=== PATIENT | male | born 1940 | race Caucasian/White ===

== ENCOUNTER 2023-11-10 06:31 | Day surgery (SDC) | payer OTHER, SELFPAY ==
[2023-11-10] VITALS (12 sets, daily range): BP systolic 114–148; BP diastolic 56–81; BMI 25.9
[2023-11-10] MEDS: NORMOSOL-R 1000 IV (09:41)
[2023-11-10] MEDS: TYLENOL 1000 MG PO (09:41)
[2023-11-10 10:44] LABS: Hematocrit 42.6 % (39.0-52.0); Hemoglobin 14.6 g/dL (13.0-18.0); Mean Corp Hgb Conc. 34.3 g/dL (33.0-37.0); Mean Corpuscular Volume 93.4 fL (80.0-94.0); Mean Platelet Volume 9.1 fL (7.4-10.4); Platelet Count 113 10^3/uL (130-400); Red Blood Cell Count 4.56 10^6/uL (4.70-6.10); Red Cell Dist. Width 12.5 % (11.5-14.5); White Blood Cell Count 8.1 10^3/uL (4.8-10.8)
--- NOTE | 2023-11-10 11:00 | W.SUR.PREOP ---
Pre-Operative Surgical Note
-
I have examined this patient prior to the performance of the scheduled procedure.
The patient's condition is unchanged from the time of the current History and
Physical and the patient is able to undergo the scheduled procedure.
[2023-11-10 11:52] LABS: Blood Urea Nitrogen 19 mg/dl (9-20); Calcium 9.2 mg/dl (8.4-10.2); Carbon Dioxide 24 mmol/L (22-30); Chloride 102 mmol/L (98-107); Estimated Creatinine Clearance 57 ml/min; Glucose 100 mg/dl (70-99); Potassium 4.4 mmol/L (3.5-5.1); Sodium 134 mmol/L (135-145); eGFR > 60.00
[2023-11-10] MEDS: MOTRIN 600 MG PO (16:31)
--- NOTE | 2023-11-10 16:47 | W.IMMPOSTOP ---
Surgical Immed Post Op Note
-
Primary Surgeon: VERONICA Holden MD
Assisting Surgeon:
Pre-op Diagnosis: Mohs defect x 3 of right nose, Basal cell carcinoma
Post-op Diagnosis: Same
Procedure Performed: Adjacent tissue transfer, Direct cheek based skin flap to nose, full thickness skin graft, wound bed prep nose
Anesthesia Type: General
Specimen / Cultures: None
Estimated Blood Loss: 10cc
Complications: None
Operative Findings: As expected
--- NOTE | 2023-11-10 16:50 | OR.RPT ---
Operative Report
Operative Report
Date of surgery: 11/10/2023
Surgeon: VERONICA Holden MD
Preoperative diagnosis: Mohs defect of the nose x 3 distinct sites, basal cell carcinoma
Postoperative diagnosis: Same
Procedure:
1. Cheek based direct skin flap for nasal reconstruction
2. Adjacent tissue transfer, face, 5 x 2 cm
3. Full-thickness skin graft 1 x 1 cm, face
4. Wound bed prep, 3 distinct sites, total surface area 3.5 cm
Anesthesia: General
EBL: 10 cc
Complications: None
Indications for procedure: Patient is an 83-year-old male with a prior diagnosis of biopsy-proven basal cell carcinoma of 3 distinct sites of the right nose including the tip, super alar groove, and nasofacial sulcus. He underwent a Mohs procedure
with confirmed clear margins. This left him with 3 distinct defects of the nose. The defect measured 1.5 x 1.5 cm, 1.1 x 1.1 cm, 0.8 x 0.8 cm respectively. Given the multifocal nature of these wounds, a long discussion was had about his options.
We discussed forehead flap freak reconstruction which he was not interested in. This would require turning the 3 wounds into 1 and reconstructing him in total. Alternatives include adjacent tissue transfer and local flap options with or without
full-thickness skin grafting. He was much more amenable to this option as it was done in 1 stage. Alternatives are to allow the wound to granulate however this would be cosmetically unfavorable. Consents were confirmed all questions were
answered. Risk were reviewed including flap failure, graft failure, wound formation, scar, need for repeat procedure. He understood these risk desired to proceed
Procedure in detail: Patient was identified preoperatively and the surgical site was confirmed to be the nose and face. All questions were answered consents were confirmed. Patient is taken back the operating placed supine on table. Anesthesia
was induced and LMA was placed. Patient was then prepped after protecting the eyes with Betadine solution. Timeout for patient safety was performed was confirmed that preoperative antibiotics have been administered and bilateral SCDs were in
place. He was draped in the usual sterile fashion. Procedure began first by measuring wounds with the aforementioned measurements. 1% lidocaine with epinephrine was used for local anesthesia. Wound bed prep was then performed removing prior
eschar, fibrinous debris, necrotic tissue. This was done over an area of 3.5 cm in total, the some of 3 distinct sites. A plan was then made for multiple reconstructive options to fill 3 defects. First medial labial flap from the right cheek with
will be performed as a direct tube for the more proximal defects. As such an incision was planned in the nasolabial fold and was measured to ensure adequate length to fill the defects. This was raised sharply with a 15 blade followed by Bovie
Bovie electrocautery. This was done in the subcutaneous plane. After raising the flap and ensuring adequate vascularity, the flap was debulked to the contour of the proximal defects. An adjacent tissue transfer was then used to also reconstruct
the resultant defect over an area of 5 x 2 cm. This was done by an advancement flap of the cheek as well. The proximal 2 defects were then able to be reconstructed by the medial labial flap and the flap was buried in the intermediate area where
skin was left intact. The skin of the flap was de-epithelialized prior. The third nasal tip defect would be reconstructed with a combination of the subcutaneous tissues from the medial labial flap which was de-epithelialized. A full-thickness
skin graft was then harvested from the right preauricular skin over an area 1 x 1 cm. This left a approximately 3 cm scar which was closed. Full-thickness skin graft was defatted and placed overlying the healthy subcutaneous tissues of the flap
with adequate contour. A bolster was then placed. All suture lines were closed with 5-0 Vicryl in the deep dermis as able, superficial sutures were combination of running and interrupted 5-0 nylon's. At the conclusion of the case the defects were
adequately filled, with good contour, and evidence of good perfusion. A bolster consisting of Xeroform was placed over the full-thickness skin graft and sutured in place as well. All counts were correct at the end the case was performed without
complication. Patient was extubated taken the PACU for further care.
== END 2023-11-10 17:05 | disposition home or self-care (01) ==
LOC: SDS 06:31
PROVIDERS: ATTENDING PHYSICIAN Surgery Plastic and Reconstructive Surgery
DX: C44.311 Basal cell carcinoma of skin of nose (principal)
CPT/HCPCS: 14060; 15260; 14061; 80048; 85027; 93005

== ENCOUNTER 2023-11-18 15:57 | Inpatient (IN) | payer OTHER, SELFPAY ==
[2023-11-18] VITALS (9 sets, daily range): BP systolic 129–162; BP diastolic 64–122; BMI 25.9; BMI 24.8
[2023-11-18 11:55] LABS: % Basophils 0.3 % (0-2); % Immature Granulocytes 0.6 % (0-0.5); % Lymphocytes 3.2 % (20.5-51.1); % Monocytes 4.1 % (1.7-9.3); % Neutrophils 91.8 % (42.2-75.2); Absolute Basophils 0.1 10^3/uL (0-0.2); Absolute Immature Granulocytes 0.1 10^3/uL (0-0.05); Absolute Lymphocytes 0.5 10^3/uL (1.2-3.4); Absolute Monocytes 0.6 10^3/uL (0.1-0.6); Absolute Neutrophils 14.4 10^3/uL (1.4-6.5); Hematocrit 39.8 % (39.0-52.0); Hemoglobin 14.6 g/dL (13.0-18.0); Mean Corp Hgb Conc. 36.7 g/dL (33.0-37.0); Mean Corpuscular Hgb 32.2 pg (27.0-31.0); Mean Corpuscular Volume 87.9 fL (80.0-94.0); Mean Platelet Volume 8.6 fL (7.4-10.4); Nucleated Red Blood Cells % 0 % (-); Platelet Count 123 10^3/uL (130-400); Red Blood Cell Count 4.53 10^6/uL (4.70-6.10); Red Cell Dist. Width 12.2 % (11.5-14.5); White Blood Cell Count 15.7 10^3/uL (4.8-10.8)
[2023-11-18 12:07] LABS: ALT (SGPT) 27 U/L (0-50); AST (SGOT) 32 U/L (17-59); Albumin 4.6 g/dl (3.5-5.0); Alkaline Phosphatase 79 U/L (38-126); Blood Urea Nitrogen 22 mg/dl (9-20); Calcium 9.3 mg/dl (8.4-10.2); Carbon Dioxide 24 mmol/L (22-30); Chloride 100 mmol/L (98-107); Estimated Creatinine Clearance 63 ml/min; Glucose 135 mg/dl (70-99); Lipase 78 U/L (23-300); Potassium 4.4 mmol/L (3.5-5.1); Sodium 133 mmol/L (135-145); Total Bilirubin 1.4 mg/dl (0.2-1.3); Total Protein 7.4 g/dl (6.3-8.2); eGFR > 60.00
[2023-11-18 12:18] LABS: Troponin I < 0.012 ng/ml
--- NOTE | 2023-11-18 12:21 | ED.GENMED ---
History of Present Illness
General
Chief Complaint: Abdominal Pain
Time Seen by Provider: 11/18/23 11:36
History of Present Illness
History of Present Illness:
83-year-old male with history of hypertension, hyperlipidemia, AAA repair presenting to the emergency department for epigastric abdominal pain with radiation to his back. Note symptoms started about 1 AM this morning with nausea. Denies any
vomiting. Reports somewhat similar episode of symptoms in the winter, attributed to GERD. Reports generalized fatigue. Denies difficulty breathing. Denies fever. Denies history of gallbladder issues. Reports AAA repair was from incidental
finding. Notes that follow-ups have been within normal limits. Does report that last evening he had a hot dog and a hamburger. Denies additional acute medical complaints.
Past History
Past History
ED Past Medical History: HTN
Social History
Tobacco: Non-smoker
Alcohol: Occasional
Drug: None
Personal:
Living: with family
Phy Exam
Physical Exam
Physical Exam:
GENERAL: Alert , in no apparent distress
EYE: pupils equal and reactive
NECK: Supple
ENT: o/p clr, mmm.
CARDIAC: Regular rate and rhythm .
LUNGS: Clear breath sounds bilaterally, no acute respiratory distress, no wheezes/rales/rhonchi
ABDOMEN: Soft, focal tenderness to the right upper quadrant without rebound or guarding
NEUROLOGICAL: Alert and oriented, no focal neuro deficits
SKIN: Warm and dry, skin intact.
MUSCULOSKELETAL: No edema, well perfused.
PSYCH: Normal and appropriate interaction.
Course
Orders/Labs/Results
Orders:
Orders
11/18/23 10:45
EKG [Electrocardiogram (*1)] Urgent
Reason for Study: Chest Pain
11/18/23 10:46
EKG- Treatment ONCE
11/18/23 11:47
Complete Blood Count/With Diff Urgent
Comprehensive Metabolic Panel Urgent
Lipase Urgent
Troponin I Urgent
11/18/23 12:15
Famotidine [Pepcid] 20 mg IV NOW STA
Mag Hydrox/Al Hydrox/Simeth [Maalox] 30 ml PO NOW STA
US Abdomen Complete/Upper Urgent
Comment:
Reason For Exam: RUQ pain
11/18/23 13:54
CefTRIAXone [Rocephin] 1,000 mg IV NOW STA
11/18/23 14:17
Sterile Water [Sterile Water For Injection] 10 ml .ROUTE .[facility]
11/18/23 15:32
Admit/Transfer Patient As Directed
Co-Sign Provider:
Level of Care: Inpatient admission
Assign to:: Medical/Surgical
Physician / Group: Kelsey
Diagnosis: Cholecystitis
Reason for Hospitalization: IVFs, IV abx, OR tomorrow
Expected length of stay greater than two midnights?: Yes
ELOS- Estimated Length of Stay in days: 3
I certify the patient meets the requirements for IP care: Yes
11/18/23 15:36
Code Status As Directed
Resuscitation Status: Full Code
Metoprolol Xl [Toprol Xl] 25 mg PO NOW STA
Abnormal Lab Results
11/18/23
11:47
WBC 15.7 H 10^3/uL
(4.8-10.8)
RBC 4.53 L 10^6/uL
(4.70-6.10)
MCH 32.2 H pg
(27.0-31.0)
Plt Count 123 L 10^3/uL
(130-400)
Abs Immat Gran (auto) 0.1 H 10^3/uL
(0-0.05)
Absolute Neuts (auto) 14.4 H 10^3/uL
(1.4-6.5)
Absolute Lymphs (auto) 0.5 L 10^3/uL
(1.2-3.4)
Immature Gran % 0.6 H %
(0-0.5)
Neutrophils % 91.8 H %
(42.2-75.2)
Lymphocytes % 3.2 L %
(20.5-51.1)
Sodium 133 L mmol/L
(135-145)
BUN 22 H mg/dl
(9-20)
Glucose 135 H mg/dl
(70-99)
Total Bilirubin 1.4 H mg/dl
(0.2-1.3)
11/18/23 11:47
11/18/23 11:47
Vital Signs
Initial and Last Documented VS:
Initial Vital Signs
Temp Pulse Resp BP Pulse Ox
98.9 F 93 16 148/112 99
11/18/23 10:46 11/18/23 10:46 11/18/23 10:46 11/18/23 10:46 11/18/23 10:46
Last Documented Vital Signs
Temp Pulse Resp BP Pulse Ox
98.9 F 72 14 140/122 98
11/18/23 10:46 11/18/23 13:30 11/18/23 13:30 11/18/23 13:03 11/18/23 13:30
MDM/Problems Addressed
MDM/Problems Addressed:
83-year-old male with history of hypertension, hyperlipidemia, AAA repair presenting for epigastric abdominal pain with radiation to his back with associated nausea vital signs on arrival significant for mild hypertension.
On exam, patient resting comfortably, no acute distress. Differential considerations include GERD versus gastritis versus cholelithiasis versus cholecystitis. Patient does have focal tenderness to the right upper quadrant and symptoms preceded by
eating a hamburger and hot dog. This reason, suspicious for gallbladder pathology. Will obtain laboratory analysis and right upper quadrant imaging. However, patient with a significant cardiac history including AAA repair. Blood pressure
slightly elevated. Aortic pathology is also consideration. EKG obtained, nonischemic. Nursing protocol placed, troponin undetectable. Will consider CT of the chest if ultrasound unremarkable
14:00 -patient with leukocytosis, and ultrasound imaging consistent with acute cholecystitis, consistent with symptoms. Will consult with surgery. Ceftriaxone ordered. Plan for admission for likely operative management
*Critical Care Note
Total Time (30-74mins, 75-104mins- exclusive of procedures): Not Applicable
ED Attending Note
-
Portions of this chart may have been created with voice recognition software.� Occasional wrong word or��sound alike� substitutions may have occurred due to the inherent limitations of voice recognition software.
Discharge Plan
Departure
Patient Disposition: Admit
Date of Disposition: 11/18/23
Time of Disposition: 14:58
Presentation/result/management discussed w/ accepting MD/DO: Hospitalist
Patient with high blood pressure during this ER visit?: Yes
Condition: Fair
Discharge Problem:
Acute calculous cholecystitis
Interventions
Interventions:
*Risk Screen - Suicide Last Done: 11/18/23 10:46
*Neglect/Abuse Screening Last Done: 11/18/23 10:46
*ED COVID-19 Vaccine History Last Done: 11/18/23 10:46
BK-Rnaycc-Mvjvbbmhvr Assessment Last Done: 11/18/23 12:52
[2023-11-18] MEDS: MAALOX 30 ML PO (12:59)
[2023-11-18] MEDS: PEPCID 20 MG IV (12:59)
[2023-11-18] MEDS: ROCEPHIN 1000 MG IV (14:18)
--- NOTE | 2023-11-18 15:19 | CON.GS ---
Consultation
-
Reason for Consultation: cholecystitis
Medical History
-
Chief Complaint: Epigastric abdominal pain
History of Present Illness:
Patient is an 83-year-old male who presented to the emergency department secondary to the acute onset of abdominal pain waking him from sleep overnight.
Patient states that he has been his usual baseline state of health although he is recently undergone Mohs procedure for resection of 3 separate basal cell carcinomas of the nose and subsequent closure recently with plastic surgery on 11/10/2023.
Patient's also states that he has had some mild lingering fatigue for the last month or so a bit worse than his baseline but no chest pain, pressure or shortness of breath and he continues with his routine activities and walking for exercise.
He had a hamburger hotdog and cookout food yesterday evening for a pre-November [employer] party. [place] well initially afterwards but awoke with acute onset of abdominal pain rating to the substernal region. He thought he may have been
developing food poisoning. The pain persisted with nausea. He tried to induce vomiting but was unable to. Pain continued to increase in severity and began localizing to the right upper quadrant with radiation into the back prompting emergency
department evaluation. No similar episodes of pain like this in the past. He has moved his bowels since his symptoms started with normal formed stool. No fevers chills or sweats. No yellowing of the skin or eyes. No dark tea colored urine.
Past Medical History
Past Medical History: Other (Hypertension, hypercholesterolemia, ED, history of basal cell carcinoma, irritable bowel, history of gastric ulcer, history of thrombocytopenia)
Past Surgical History: Other (Open AAA repair 2007, Mohs for basal cell)
Social History
Tobacco: Non-Smoker
Personal:
Living: With Family
Family History
Family History: Reviewed & Noncontributory
Allergies / Home Medications
Allergy/AdvReac Type Severity Reaction Status Date / Time
No Known Allergies Allergy Verified 11/10/23 09:23
�Medication �Instructions �Recorded �Confirmed �Type
amlodipine 5 mg tablet 5 mg PO DAILY Blood Pressure 11/04/23 11/18/23 History
metoprolol succinate 25 mg 25 mg PO DAILY Blood Pressure 11/04/23 11/18/23 History
tablet,extended release 24 hr
multivitamin 1 tab PO DAILY Supplement 11/04/23 11/18/23 History
rosuvastatin 40 mg tablet 40 mg PO DAILY High Cholesterol 11/04/23 11/18/23 History
valsartan 160 mg tablet 160 mg PO DAILY Blood Pressure 11/04/23 11/18/23 History
sildenafil 50 mg tablet 50 mg PO DAILY PRN ED 11/18/23 11/18/23 History
Review of Systems
-
History Source: Patient
All other systems: Negative unless noted
A 10 point review of systems was completed, and was negative except as per HPI.
Physical Exam
Vital Signs
Temp Pulse Resp BP Pulse Ox
98.9 F 72 14 140/122 98
11/18/23 10:46 11/18/23 13:30 11/18/23 13:30 11/18/23 13:03 11/18/23 13:30
11/17/23 11/18/23 11/19/23
06:59 06:59 06:59
Actual Weight 79.379 kg
Body Mass Index (BMI) 25.9
Lab Results
11/18/23 11:47
11/18/23 11:47
WBC 15.7 10^3/uL (4.8-10.8) H 11/18/23 11:47
Hgb 14.6 g/dL (13.0-18.0) 11/18/23 11:47
Hct 39.8 % (39.0-52.0) 11/18/23 11:47
Plt Count 123 10^3/uL (130-400) L 11/18/23 11:47
Abs Immat Gran (auto) 0.1 10^3/uL (0-0.05) H 11/18/23 11:47
Neutrophils % 91.8 % (42.2-75.2) H 11/18/23 11:47
Physical Exam
General: Well Developed, Well Nourished, No Apparent Distress and Comfortable
HEENT: Other (Surgical scars/healing incision sites from recent Mohs and reconstruction)
Respiratory: Non Labored Respirations
Cardiac: Regular Rhythm
GI: Soft, Non Distended and Tender (Mild tenderness palpation localizing to the epigastrium and just to the right of midline. No rebound rigidity or guarding)
Neuro: AO x 3
Psych: Calm
Data Reviewed
-
Ultrasound: Image Personally Visualized and interpreted, Discussed with Physician, Discussed with Patient and Discussed with Family
Labs: Labs Reviewed by me, Discussed with Patient and Discussed with Family
Assessment / Plan
-
Assessment: 83-year-old male presenting with acute calculus cholecystitis resultant leukocytosis. Chronic thrombocytopenia stable. Mild elevation of total bilirubin 1.4, remaining LFTs within normal limits. Lipase normal.
Ultrasound abdomen images personally reviewed and interpreted as well as radiologist report. Gallbladder filled with stones and sludge. Gallbladder wall thickening and pericholecystic edema/fluid. No biliary ductal dilation. Common bile duct 5
mm.
Reviewed with patient and his history, workup and radiographic imaging consistent with acute calculus cholecystitis. In the setting of intractable abdominal pain, nausea, elevated bilirubin and ultrasound findings recommended admission and
pursuing cholecystectomy for definitive care which he was in agreement with. We discussed nonoperative treatment options as well.
Laparoscopic cholecystectomy with intraoperative cholangiograms reviewed in detail including the operative technique utilizing a diagram and drawing. We discussed pertinent surrounding anatomy. We reviewed the anticipated operative procedure,
alternative treatment options, benefits and risk such as but not limited to bleeding, infectious and related complications, iatrogenic injury to surrounding viscera, bile leak, bile duct injury, postcholecystectomy fatty food intolerances. We
discussed the typical postoperative recovery pending operative findings as well. Any of the patient's concerns or questions were fully addressed.
Plan: Patient has been added onto the OR schedule for tomorrow 11/19/2023 for laparoscopic cholecystectomy with cholangiogram
Okay for clear liquid diet as long as nausea controlled and no worsening abdominal pains otherwise should be n.p.o. and plan on n.p.o. after midnight for surgery tomorrow
Initiate broad-spectrum antibiotic coverage to cover for biliary sources
Repeat laboratory testing in a.m. to confirm stability of thrombocytopenia as well as monitoring of LFTs.
Will follow, appreciate hospitalist admission and assistance with care.
--- NOTE | 2023-11-18 15:42 | HPS.HSE ---
Addendum entered and electronically signed by Bon Cole MD 11/18/23 15:56:
I saw and examined the patient.
The [employer]'s note was reviewed and I agree with the note.
Comment:
83-year-old male past medical history of hypertension hyperlipidemia Toprol repair who was presented with epigastric abdominal pain radiation to the back. Symptoms happened last night. States no nausea. No vomiting. Denies any chest pain or
shortness of breath. Patient ate ate hotdog and hamburger last night. Also history of basal cell carcinoma status post Mohs surgery.
General: Comfortable and Conversant
HEENT: Anicteric and Moist mucous membranes
Respiratory: Clear and Non Labored Respirations
Cardiac: S1/S2, Regular Rhythm and Tachycardia (Slightly)
GI: Soft and Tender (Epigastric and RUQ without rebound or guarding)
Rectal: Deferred by Provider
Musculoskeletal: No Clubbing, No Cyanosis and No Edema
Skin: Warm and Dry
Neuro: Awake, Alert, Oriented and Nonfocal/grossly intact
Psych: Calm
Impression
Epigastric abdominal pain
Acute calculus cholecystitis
Primary hypertension
Hyperlipidemia
Chronic thrombocytopenia
Basal cell carcinoma
Plan
Clears for now. If with abdominal pain nausea then switch to n.p.o. Otherwise n.p.o. past midnight for surgery
Start IV fluids
Start antibiotics for now
General surgery evaluation
DVT prophylaxis SCDs
Original Note:
Family Physician
-
Family Physician: Jose De Jesus Weeks
Chief Complaint
-
Abdominal Pain
History of Present Illness
Patient is an 83-year-old male past medical history of hypertension, hyperlipidemia, chronic thrombocytopenia and prior AAA repair who presents with nausea abdominal pain. Patient reports he was at a pretty [employer] [facility] last night where
he had a hamburger and a hotdog which is not his usual. Around 1 AM this morning he awoke suddenly feeling very unwell. He reports severe nausea. He states he attempted to vomit but was unable. He reports abdominal pain in the epigastric region
radiating to the right upper quadrant and around to the back. Due to severity of symptoms he presented to the emergency department for evaluation. Abdominal ultrasound revealed evidence of acute cholecystitis. Patient denies any associated fever,
sweats or chills.
Medical History
Past Medical History
Past Medical History: Reports Other
Additional Past Medical History:
Abdominal Aortic Aneurysm
Essential Hypertension
Hyperlipidemia
Chronic Thrombocytopenia
Past Surgical History: Reports Other
Additional Past Surgical History:
AAA Repair
Social History
Tobacco: Former Smoker (Quit in 1982)
Alcohol: Daily (1-2 Nightly)
Personal:
Family History
Family History: Not pertinent
Allergies / Home Medications
Allergies reflects when Allergies were last updated in [facility].
Home Medications with original date entered in [facility]
Allergy/Medication List:
Allergies
Allergy/AdvReac Type Severity Reaction Status Date / Time
No Known Allergies Allergy Verified 11/10/23 09:23
Home Medications
amlodipine 5 mg tablet 5 mg PO DAILY Blood Pressure 11/04/23
metoprolol succinate 25 mg tablet,extended release 24 hr 25 mg PO DAILY Blood Pressure 11/04/23
multivitamin 1 tab PO DAILY Supplement 11/04/23
rosuvastatin 40 mg tablet 40 mg PO DAILY High Cholesterol 11/04/23
valsartan 160 mg tablet 160 mg PO DAILY Blood Pressure 11/04/23
sildenafil 50 mg tablet 50 mg PO DAILY PRN ED 11/18/23
Review of Systems
-
A 12 point ROS was completed and negative except as noted: Yes
Constitutional: Denies Fever or Chills
Respiratory: Denies Cough or Trouble Breathing
Cardiac: Denies Chest Pain or Palpitations
Abdomen/GI: Reports See HPI
Physical Exam
Vital Signs
Vital Signs
Temp Pulse Resp BP Pulse Ox
98.9 F 72 14 140/122 98
11/18/23 10:46 11/18/23 13:30 11/18/23 13:30 11/18/23 13:03 11/18/23 13:30
Physical Exam
General: Comfortable and Conversant
HEENT: Anicteric and Moist mucous membranes
Respiratory: Clear and Non Labored Respirations
Cardiac: S1/S2, Regular Rhythm and Tachycardia (Slightly)
GI: Soft and Tender (Epigastric and RUQ without rebound or guarding)
Rectal: Deferred by Provider
Musculoskeletal: No Clubbing, No Cyanosis and No Edema
Skin: Warm and Dry
Neuro: Awake, Alert, Oriented and Nonfocal/grossly intact
Psych: Calm
Laboratory Results
-
11/18/23 11:47
11/18/23 11:47
Laboratory Results
Total Bilirubin 1.4 mg/dl (0.2-1.3) H 11/18/23 11:47
AST 32 U/L (17-59) 11/18/23 11:47
ALT 27 U/L (0-50) 11/18/23 11:47
Alkaline Phosphatase 79 U/L (38-126) 11/18/23 11:47
Troponin I < 0.012 ng/ml 11/18/23 11:47
Lipase Cancelled 11/18/23 12:15
Data Reviewed
-
Ultrasound: Report Reviewed by me
Lab Data: Labs Reviewed by me
Impression/Plan
-
Sepsis secondary to Acute Cholecystitis
-Reviewed with Surgery - Plan for Cholecystectomy tomorrow
-Allow clear liquids tonight if tolerates then NPO after midnight
-Continue Unasyn
-Continue IVFs
Essential Hypertension
-Continue amlodipine, metoprolol and valsartan with hold parameters
Hyperlipidemia
-Hold rosuvastatin
Chronic Thrombocytopenia
-Platelet count appears stable
DVT proph: SCDs
Code Status: Full Code
--- NOTE | 2023-11-18 15:56 | W.PN.UPDATE ---
Update Note
Progress Note Update
for billing purpose
[2023-11-18] MEDS: NSS 1000 IV (17:32)
[2023-11-18] MEDS: UNASYN IV ×2 (17:33→23:02)
[2023-11-18] MEDS: ZOFRAN 4 MG IV (17:41)
[2023-11-18] MEDS: DILAUDID 0.25 MG IV (17:42)
--- NOTE | 2023-11-18 18:10 | PTCARENOTE ---
1708 arrived to 2107 from ED with epigastric ok for CLD then NPO tonight. 20g RAC 100ml NSS Unasyn started. pt AOx3 mild pain currently. bed low call clay in reach,
[2023-11-19] VITALS (9 sets, daily range): BP systolic 25–135; BP diastolic 56–75
[2023-11-19] MEDS: NSS IV (04:33)
[2023-11-19 06:09] LABS: Hematocrit 35.3 % (39.0-52.0); Hemoglobin 12.9 g/dL (13.0-18.0); Mean Corp Hgb Conc. 36.5 g/dL (33.0-37.0); Mean Corpuscular Hgb 32.1 pg (27.0-31.0); Mean Corpuscular Volume 87.8 fL (80.0-94.0); Mean Platelet Volume 8.8 fL (7.4-10.4); Platelet Count 117 10^3/uL (130-400); Red Blood Cell Count 4.02 10^6/uL (4.70-6.10); Red Cell Dist. Width 12.5 % (11.5-14.5); White Blood Cell Count 13.9 10^3/uL (4.8-10.8)
[2023-11-19] MEDS: NSS 1000 IV ×2 (06:17→23:08)
[2023-11-19] MEDS: UNASYN IV ×4 (06:17→23:06)
[2023-11-19 06:24] LABS: ALT (SGPT) 18 U/L (0-50); AST (SGOT) 25 U/L (17-59); Albumin 3.5 g/dl (3.5-5.0); Alkaline Phosphatase 60 U/L (38-126); Blood Urea Nitrogen 18 mg/dl (9-20); Calcium 8.5 mg/dl (8.4-10.2); Carbon Dioxide 22 mmol/L (22-30); Chloride 104 mmol/L (98-107); Estimated Creatinine Clearance 63 ml/min; Glucose 97 mg/dl (70-99); Sodium 132 mmol/L (135-145); Total Bilirubin 1.2 mg/dl (0.2-1.3); Total Protein 5.8 g/dl (6.3-8.2); eGFR > 60.00
[2023-11-19] MEDS: TOPROL XL 25 MG PO (08:03)
--- NOTE | 2023-11-19 10:42 | W.PN.HOSP.TC ---
Today's Communication/Plan
-
N.p.o. for OR later today
IV fluid
IV antibiotic
Assessment / Plan
Assessment / Plan
General: Comfortable and Conversant
HEENT: Anicteric and Moist mucous membranes
Respiratory: Clear and Non Labored Respirations
Cardiac: S1/S2, Regular Rhythm and Tachycardia (Slightly)
GI: Soft and Tender (Epigastric and RUQ without rebound or guarding)
Rectal: Deferred by Provider
Musculoskeletal: No Clubbing, No Cyanosis and No Edema
Skin: Warm and Dry
Neuro: Awake, Alert, Oriented and Nonfocal/grossly intact
Psych: Calm
Sepsis secondary to Acute Cholecystitis
-Reviewed with Surgery - Plan for Cholecystectomy with intraoperative cholangiogram
-N.p.o. for now and postop orders per surgery
-Continue Unasyn. WBC downtrending.
-Continue IVFs
Essential Hypertension
-Continue continue metoprolol. Restart Norvasc and valsartan.
Hyperlipidemia
-Hold rosuvastatin
Chronic Thrombocytopenia
-Trend platelets.
DVT proph: SCDs
Code Status: Full Code
Anticipated Discharge: 24 - 48 hours
Subjective/Interval History
-
Date of Service: November 19, 2023
'
States improvement in nausea and RUQ abd pain
Objective Data
-
Labs:
Laboratory Results
11/19/23
05:15
WBC 13.9 H
Hgb 12.9 L
Hct 35.3 L
Plt Count 117 L
Sodium 132 L
Potassium 4.0
Chloride 104
Carbon Dioxide 22
BUN 18
Creatinine 0.9
Glucose 97
Calcium 8.5
Total Bilirubin 1.2
AST 25
ALT 18
Alkaline Phosphatase 60
Vital Signs:
Vital Signs
Temp Pulse Resp BP Pulse Ox
98.4 F 76 17 135/61 96
11/19/23 07:10 11/19/23 08:03 11/19/23 07:10 11/19/23 08:03 11/19/23 07:10
I&O
11/18/23 11/19/23 11/20/23
06:59 06:59 06:59
Intake Total 1974
Balance 1974
--- NOTE | 2023-11-19 14:10 | W.IMMPOSTOP ---
Addendum entered and electronically signed by Tunde Weaver MD 11/19/23 16:08:
#[id number]
Original Note:
Surgical Immed Post Op Note
-
Primary Surgeon: Meg
Assisting Surgeon: Katlin Washington PA-c
Rik Puckettues PGY-1
Pre-op Diagnosis: Acute calculus cholecystitis
Post-op Diagnosis: Gangrenous acute calculus cholecystitis
Procedure Performed: Laparoscopic cholecystectomy
Anesthesia Type: GETA +0.25% Marcaine
Specimen / Cultures: Gallbladder
Estimated Blood Loss: 42 mL
Complications: None immediate
Operative Findings: Tensely distended gallbladder encased within both acute and chronic inflammatory changes/peel. Severe gallbladder wall thickening with edema and patchy gangrenous changes. Main cystic artery identified and controlled with
clips. Multiple additional dilated cystic artery/duct branches due to acute inflammation accounting for increased blood loss but these were readily controlled with hemoclips and cautery as necessary for hemostasis. Cystic duct isolated and divided
with Endo GISSEL marin 30 mm articulating stapler. Surgiflo application to cystic triangle due to raw surface area to assist with postoperative hemostasis.
Drains: 19 Piero drain placed in subhepatic space/gallbladder fossa.
Plan: Clear liquid diet today. Advance diet tomorrow if no nausea. Maintain NORAH monitoring outputs. Would continue with postoperative IV antibiotics for an additional 36 hours postop and discharged home with a total course of 5-day postoperative
antibiotic coverage secondary to severity of acute cholecystitis.
Patient's updated postoperatively in the waiting area
--- NOTE | 2023-11-19 15:17 | PTCARENOTE ---
Patient returned to his room from [facility] post laparoscopic cholecystectomy.The patient rates his pain at a 3 out of 10.All 3 lap sites are open to air without drainage.The NORAH drain is intact.The patient is in his bed with the call clay in reach.His
is at the bedside.
--- NOTE | 2023-11-19 17:11 | CM ---
quality manager reviewed patient's chart and met with patient and patient lives with his spouse in a 2 story home, patient is independent with adl's and ambulation, no dme.
PCP: Dr. Weeks
Pharmacy [facility]
Plan; Home with spouse no needs.
[2023-11-19] MEDS: DILAUDID 0.5 MG IV (20:28)
[2023-11-20 03:42] VITALS: BP 122/64
[2023-11-20] MEDS: UNASYN IV ×4 (05:44→23:18)
[2023-11-20 07:10] VITALS: BP 117/87
[2023-11-20 08:22] LABS: % Basophils 0.1 % (0-2); % Immature Granulocytes 0.6 % (0-0.5); % Lymphocytes 3.3 % (20.5-51.1); Absolute Immature Granulocytes 0.1 10^3/uL (0-0.05); Absolute Lymphocytes 0.5 10^3/uL (1.2-3.4); Absolute Monocytes 1.1 10^3/uL (0.1-0.6); Absolute Neutrophils 14.4 10^3/uL (1.4-6.5); Hematocrit 33.8 % (39.0-52.0); Hemoglobin 11.9 g/dL (13.0-18.0); Mean Corp Hgb Conc. 35.2 g/dL (33.0-37.0); Mean Corpuscular Hgb 32.3 pg (27.0-31.0); Mean Corpuscular Volume 91.8 fL (80.0-94.0); Mean Platelet Volume 9.2 fL (7.4-10.4); Nucleated Red Blood Cells % 0 % (-); Platelet Count 107 10^3/uL (130-400); Red Blood Cell Count 3.68 10^6/uL (4.70-6.10); Red Cell Dist. Width 12.7 % (11.5-14.5); White Blood Cell Count 16.2 10^3/uL (4.8-10.8)
[2023-11-20] MEDS: NSS 1000 IV (08:39)
[2023-11-20] MEDS: NORVASC PO (08:41)
[2023-11-20] MEDS: TOPROL XL 25 MG PO (08:42)
[2023-11-20] MEDS: DIOVAN 160 MG PO (08:51)
[2023-11-20 08:55] LABS: ALT (SGPT) 22 U/L (0-50); AST (SGOT) 29 U/L (17-59); Alkaline Phosphatase 67 U/L (38-126); Blood Urea Nitrogen 16 mg/dl (9-20); Carbon Dioxide 24 mmol/L (22-30); Chloride 104 mmol/L (98-107); Estimated Creatinine Clearance 63 ml/min; Glucose 109 mg/dl (70-99); Potassium 4.1 mmol/L (3.5-5.1); Sodium 135 mmol/L (135-145); Total Bilirubin 0.7 mg/dl (0.2-1.3); Total Protein 5.4 g/dl (6.3-8.2); eGFR > 60.00
--- NOTE | 2023-11-20 09:05 | W.PN.GS2 ---
Addendum entered and electronically signed by Tunde Weaver MD 11/20/23 09:13:
pt seen and examined with [employer]IC
doing well post op
no nausea, reagan clears
AFVSS
ABD: soft, ND, minimal tenderness at incisions
NORAH light SSF - nonbilious
A/P: POD#1
low fat diet
continue unasyn today and d/c on augmentin for 5 day post op course abx
following NORAH which will be removed tomorrow prior to d/c as long as remains nonbilious
Original Note:
Today's Communication / Plan
-
LFD
Continue IV abx
Assessment / Plan
-
83 yo male presenting with ACC now POD #1 lap angelina with gangrenous ACC noted intraop.
AFVSS
+Leukocytosis, reactive and not unexpected given gangrenous gallbladder
Tolerating clears, +flatus
LFT's wnl
NORAH drain nonbilious and nonpurulent with SSF noted
--Advance to low fat diet
--Continue IV abx, transition to PO upon d/c for total of 5 day course
--CBC in am
--C/W NORAH drain, will tentatively plan removal prior to d/c
--Multimodal analgesics
--IS while awake, wean O2
--OOB/Ambulate
--Lovenox 40mg SQ vte ppx
Subjective Data
-
Date of Service: November 20, 2023
Patient seen and examined at bedside with Dr. Weaver. Denies n/v. Tolerating clears. Passing flatus. Pain well managed, feels a little tugging around drain with movement.
Objective Data
-
Intake and Output
11/19/23 11/20/23 11/21/23
06:59 06:59 06:59
Intake Total 1974
Output Total 500 / 500
Balance 1974 1432 / 1432
Intake:
Oral fluids 240 / 240 59 59
IV fluids (Total) 1375 / 1375 1100 / 1100
norm 100 / 100
IV piggybacks 360 / 360 240 / 240
Output:
Drain Output (Total) 100 / 100
Right Abdomen Stephen-Smith 100 / 100
Urine, Voided 400 / 400
Other:
Number of approximated MODERATE 1 2
amounts of urine
Vital Signs
Temp Pulse Resp BP Pulse Ox
97.6 F 73 16 117/87 99
11/20/23 07:10 11/20/23 08:41 11/20/23 07:10 11/20/23 08:41 11/20/23 07:10
Lab Results
11/20/23 07:04
11/20/23 07:04
Calcium 8.0 mg/dl (8.4-10.2) L 11/20/23 07:04
Total Bilirubin 0.7 mg/dl (0.2-1.3) 11/20/23 07:04
AST 29 U/L (17-59) 11/20/23 07:04
ALT 22 U/L (0-50) 11/20/23 07:04
Alkaline Phosphatase 67 U/L (38-126) 11/20/23 07:04
Total Protein 5.4 g/dl (6.3-8.2) L 11/20/23 07:04
Albumin 3.0 g/dl (3.5-5.0) L 11/20/23 07:04
Physical Exam
-
NAD
ABD soft, mild incisional tenderness, [employer]IC, ND, NORAH with SSF (nonbilious)
Incisions well approximated with intact glue, no erythema
--- NOTE | 2023-11-20 10:09 | W.PN.HOSP.TC ---
Today's Communication/Plan
-
Monitor for diet tolerance
IV antibiotic
Monitor NORAH drain output
PT eval
Assessment / Plan
Assessment / Plan
General: Comfortable and Conversant
HEENT: Anicteric and Moist mucous membranes
Respiratory: Clear and Non Labored Respirations
Cardiac: S1/S2, Regular Rhythm
GI: Soft and Tender RUQ. NORAH drain noted
Rectal: Deferred by Provider
Musculoskeletal: No Clubbing, No Cyanosis and No Edema
Skin: Warm and Dry
Neuro: Awake, Alert, Oriented and Nonfocal/grossly intact
Psych: Calm
Sepsis secondary to Acute Cholecystitis-poa
-Continue Unasyn.
-Continue IVFs and CD once tolerating po intake
-Status post laparoscopic cholecystectomy with operative finding of tensely distended gallbladder with acute on chronic inflammatory changes. Severe gallbladder wall thickening with edema and patchy gangrenous changes.
-s/p NORAH drain placement. Monitor output.
-P.o. Augmentin on discharge.
-Monitor for low-fat diet.
Essential Hypertension
-Continue continue metoprolol. Restart Norvasc and valsartan.
Hyperlipidemia
-Hold rosuvastatin
Chronic Thrombocytopenia
-Trend platelets.
DVT proph: SCDs
Code Status: Full Code
Anticipated Discharge: 24 - 48 hours
Subjective/Interval History
-
Date of Service: November 20, 2023
states of RUQ pain mild
Objective Data
-
Labs:
Laboratory Results
11/20/23
07:04
WBC 16.2 H
Hgb 11.9 L
Hct 33.8 L
Plt Count 107 L
Sodium 135
Potassium 4.1
Chloride 104
Carbon Dioxide 24
BUN 16
Creatinine 0.9
Glucose 109 H
Calcium 8.0 L
Total Bilirubin 0.7
AST 29
ALT 22
Alkaline Phosphatase 67
Vital Signs:
Vital Signs
Temp Pulse Resp BP Pulse Ox
97.6 F 73 16 117/87 99
11/20/23 07:10 11/20/23 08:41 11/20/23 07:10 11/20/23 08:41 11/20/23 07:10
I&O
11/19/23 11/20/23 11/21/23
06:59 06:59 06:59
Intake Total 1974 / 1931
Output Total 500 / 500
Balance 1974 1432 / 1432
[2023-11-20 11:15] VITALS: BP 128/74
[2023-11-20] MEDS: DILAUDID 0.25 MG IV (12:54)
[2023-11-20 15:10] VITALS: BP 119/56
[2023-11-20] MEDS: LOVENOX 40 MG SC (17:25)
[2023-11-20] MEDS: ULTRAM 50 MG PO (19:16)
[2023-11-20 23:16] VITALS: BP 122/61
[2023-11-21] MEDS: UNASYN IV (05:12)
[2023-11-21 07:10] VITALS: BP 123/70
[2023-11-21 07:15] LABS: % Basophils 0.5 % (0-2); % Eosinophils 0.2 % (0-6); % Immature Granulocytes 0.7 % (0-0.5); % Lymphocytes 11.8 % (20.5-51.1); % Monocytes 8.6 % (1.7-9.3); % Neutrophils 78.2 % (42.2-75.2); Absolute Basophils 0.1 10^3/uL (0-0.2); Absolute Immature Granulocytes 0.1 10^3/uL (0-0.05); Absolute Lymphocytes 1.3 10^3/uL (1.2-3.4); Absolute Monocytes 0.9 10^3/uL (0.1-0.6); Absolute Neutrophils 8.6 10^3/uL (1.4-6.5); Hematocrit 34.9 % (39.0-52.0); Hemoglobin 12.1 g/dL (13.0-18.0); Mean Corp Hgb Conc. 34.7 g/dL (33.0-37.0); Mean Corpuscular Volume 92.3 fL (80.0-94.0); Mean Platelet Volume 9.3 fL (7.4-10.4); Nucleated Red Blood Cells % 0 % (-); Platelet Count 107 10^3/uL (130-400); Red Blood Cell Count 3.78 10^6/uL (4.70-6.10); Red Cell Dist. Width 12.8 % (11.5-14.5)
[2023-11-21] MEDS: DIOVAN 160 MG PO (07:17)
[2023-11-21 07:18] LABS: ALT (SGPT) 54 U/L (0-50); AST (SGOT) 69 U/L (17-59); Albumin 3.1 g/dl (3.5-5.0); Alkaline Phosphatase 61 U/L (38-126); Blood Urea Nitrogen 19 mg/dl (9-20); Calcium 8.2 mg/dl (8.4-10.2); Carbon Dioxide 23 mmol/L (22-30); Chloride 105 mmol/L (98-107); Estimated Creatinine Clearance 57 ml/min; Glucose 92 mg/dl (70-99); Potassium 3.9 mmol/L (3.5-5.1); Sodium 135 mmol/L (135-145); Total Bilirubin 0.7 mg/dl (0.2-1.3); Total Protein 5.4 g/dl (6.3-8.2); eGFR > 60.00
[2023-11-21] MEDS: NORVASC 5 MG PO (07:18)
[2023-11-21] MEDS: TOPROL XL 25 MG PO (07:19)
--- NOTE | 2023-11-21 10:02 | W.PN.GS2 ---
Today's Communication / Plan
-
`
Assessment / Plan
-
Assessment: 83 yo male presenting with ACC now POD #2 lap angelina with gangrenous ACC noted intraop.
AFVSS
White blood cell count normalizing as expected, chemistries unremarkable.
Slight bump in AST and ALT very common after cholecystectomy. Normal bilirubin and alkaline phosphatase.
NORAH removed and dressing applied.
Plan: Patient stable for discharge home from surgical standpoint
Discharge on an additional 4-day course of Augmentin
Low-fat diet as tolerated
Outpatient surgical follow-up with myself in approximately 2 weeks
Subjective Data
-
Date of Service: November 21, 2023
Patient seen and examined, resting comfortably in his hospital bed
Reports mild lingering postoperative incisional pain.
Tolerating low-fat diet.
No nausea, vomiting, abdominal bloating or distention.
Ambulating and voiding.
Objective Data
-
Intake and Output
11/20/23 11/21/23/01/07
06:59 06:59 06:59
Intake Total 1932 / 1932 2650 / 2650
Output Total 500 / 500 125 / 125
Balance 1432 / 1432 2525 / 2525
Intake:
Oral fluids 592 / 592 1320 / 1320
IV fluids (Total) 1100 / 1100 850 / 850
norm 100 / 100
IV piggybacks 240 / 240 480 / 480
Output:
Drain Output (Total) 100 / 100 125 / 125
Right Abdomen Stephen-Smith 100 / 100 125 / 125
Urine, Voided 400 / 400
Other:
Number of approximated SMALL 1
amounts of urine
Number of approximated MODERATE 2 2
amounts of urine
Number of approximated LARGE 3
amounts of urine
Vital Signs
Temp Pulse Resp BP Pulse Ox
97.6 F 62 16 123/70 95
11/21/23 07:10 11/21/23 07:10 11/21/23 07:10 11/21/23 07:17 11/21/23 07:10
Lab Results
11/21/23 06:36
11/21/23 06:36
Calcium 8.2 mg/dl (8.4-10.2) L 11/21/23 06:36
Total Bilirubin 0.7 mg/dl (0.2-1.3) 11/21/23 06:36
AST 69 U/L (17-59) H 11/21/23 06:36
ALT 54 U/L (0-50) H 11/21/23 06:36
Alkaline Phosphatase 61 U/L (38-126) 11/21/23 06:36
Total Protein 5.4 g/dl (6.3-8.2) L 11/21/23 06:36
Albumin 3.1 g/dl (3.5-5.0) L 11/21/23 06:36
Physical Exam
-
NAD, AAOx3
ABD: Soft, nondistended, minimal incisional tenderness
Incisions with surgical glue dressings, no open wounds, no drainage, no erythema
NORAH with light serosanguineous fluid, nonbilious, nonpurulent.
--- NOTE | 2023-11-21 10:29 | W.PN.HOSP.TC ---
Today's Communication/Plan
-
dc home
po abx
Assessment / Plan
Assessment / Plan
General: Comfortable and Conversant
HEENT: Anicteric and Moist mucous membranes
Respiratory: Clear and Non Labored Respirations
Cardiac: S1/S2, Regular Rhythm
GI: Soft and non tender
Rectal: Deferred by Provider
Musculoskeletal: No Clubbing, No Cyanosis and No Edema
Skin: Warm and Dry
Neuro: Awake, Alert, Oriented and Nonfocal/grossly intact
Psych: Calm
Sepsis secondary to Acute Cholecystitis-poa
-Continue Unasyn.
-Continue IVFs and CD once tolerating po intake
-Status post laparoscopic cholecystectomy with operative finding of tensely distended gallbladder with acute on chronic inflammatory changes. Severe gallbladder wall thickening with edema and patchy gangrenous changes.
-s/p NORAH drain placement. Monitor output. NORAH drain removed
-P.o. Augmentin on discharge.
-Monitor for low-fat diet.
Essential Hypertension
-Continue continue metoprolol. Restart Norvasc and valsartan.
Hyperlipidemia
-Hold rosuvastatin
Chronic Thrombocytopenia
-Trend platelets.
DVT proph: SCDs
Code Status: Full Code
More than 30 minutes spent in discharge including
Final examination of the patient
Summarizing hospital stay
Instructions for continuing care to all relevant caregivers
Preparation of discharge records, prescriptions, and referral forms
Total time spent (in minutes): 45
Anticipated Discharge: Today
Subjective/Interval History
-
Date of Service: November 21, 2023
feeling better
tolerating diet
Norah drain removed
Objective Data
-
Labs:
Laboratory Results
11/21/23
06:36
WBC 11.0 H
Hgb 12.1 L
Hct 34.9 L
Plt Count 107 L
Sodium 135
Potassium 3.9
Chloride 105
Carbon Dioxide 23
BUN 19
Creatinine 1.0
Glucose 92
Calcium 8.2 L
Total Bilirubin 0.7
AST 69 H
ALT 54 H
Alkaline Phosphatase 61
Vital Signs:
Vital Signs
Temp Pulse Resp BP Pulse Ox
97.6 F 62 16 123/70 95
11/21/23 07:10 11/21/23 07:10 11/21/23 07:10 11/21/23 07:17 11/21/23 07:10
I&O
11/20/23 11/21/23 11/22/23
06:59 06:59 06:59
Intake Total 1931 / 1931 2650 / 2650
Output Total 500 / 500 125 / 125
Balance 1432 / 1432 2525 / 2525
--- NOTE | 2023-11-21 10:43 | W.DCSUMMARY ---
Discharge Summary
Discharge Data
Date of Admission: 11/18/23
Date of Discharge: 11/21/23
-
Pending Results: No
Hospital Course
83-year-old male past medical history of hypertension, hyperlipidemia, chronic thrombocytopenia who is presenting from home with severe right upper quadrant abdominal pain. Upon admission patient underwent abdominal ultrasound which showed
completely filled gallbladder lumen with stones and sludge. Gallbladder wall thickening and mild pericholecystic fluid. Findings raise suspicion for acute cholecystitis. Patient was evaluated by general surgery. Patient was started on IV fluids
and antibiotics. Status post laparoscopic cholecystectomy with operative finding of tensely distended gallbladder with acute on chronic inflammatory changes. Severe gallbladder wall thickening with edema and patchy gangrenous changes. NORAH drain was
placed in OR which was removed on 11/20. IV antibiotic with transition to p.o. Augmentin on discharge. Patient was able to tolerate liquid diet which was transitioned to low-fat diet. Patient was tolerating diet without any nausea vomiting
abdominal pain. Patient was discharged home with outpatient follow-up with general surgery.
Discharge Plan
-
Patient Disposition: Home (Routine Discharge)
Discharge Diagnosis/Procedures: Acute cholecystitis; status post laparoscopic cholecystectomy
Sepsis secondary to acute cholecystitis
Condition: Fair
Diet: Low Fat
Activity: No strenuous activity
Driving Restrictions: No driving for 24 hours
Bathing Restrictions: OK to Shower
Wound Care: Leave dressing at old drain site in place for 24 hours. Subsequently remove and cover with dry gauze or Band-Aid dressing daily until dry.
Activity Restrictions/Additional Instructions:
Post-Operative Instructions for Gallbladder Surgery
The incision sites are sealed with a surgical glue dressing.� It is safe to shower at any time after surgery when the glue is dry.� Let shower water run over the incisions and then pat dry.
Glue dressing typically peels off in 2-3 weeks.
Abdominal/incisional pain and discomfort, shoulder/scapular pain, bloating, and mild nausea, as well as bruising/stiffness and swelling at the incision sites are common after surgery.� If felt to be excessive, notify us.
Please start postoperative pain management using over the counter medications such as Tylenol and Ibuprofen, per instructions on the bottle, as long as there are no medical reasons why you cannot take these medications.
Ice the incisions sites for 20 minutes every hour or so to help with postoperative incisional pain and reduce postoperative surgical site swelling.� Take care NOT to get an ice burn on the skin surface.
A warm heating pad is often helpful to alleviate shoulder/scapular back pains after laparoscopic procedures.� This pain typically dissipates 24-72hrs post op.
Transition to a low fat diet as tolerated after surgery if not experiencing postoperative nausea or significant bloating/distention.� Some fatty food intolerance may occur shortly after surgery (cramps,bloating, nausea,diarrhea with fat intake).
Constipation is common following surgery and postoperative narcotic use.� May use a stool softener such as Colace (100 mg 2x day) to prevent constipation
If no BM 24hrs after surgery, recommend starting daily Miralax
If no BM in 24-48hrs after starting Miralax --> recommend then using a dose of magnesium citrate or milk of magnesia with a Senokot tablet to help alleviate post operative constipation as long as there is no nausea/vomiting and passing gas.
Resume all preoperative medications as prescribed, unless directed otherwise.
Do not drive or drink alcohol for 24 hrs after having anesthesia or while taking narcotic pain medications.
Resume regular daily light activities, such as walking, standing and going up/down stairs as tolerated within 24hrs of surgery.� Please refrain from lifting over 20 lbs or strenuous exercise until postoperative follow up visit &/or approximately
3-4 weeks.�
Call the office with a fever above 101� F, nausea with vomiting, severe abdominal pain, yellowing of skin or eyes, spreading redness and drainage from incision sites or with any concerns/questions.
If not arranged prior to surgery, please call the office to schedule or confirm your 10-14 day postoperative surgical follow-up office visit with Dr. Weaver.
Referrals:
Jose De Jesus Weeks MD [Family Provider] -
Tunde Weaver MD [Active] - in two to four weeks
Prescriptions:
New
amoxicillin-pot clavulanate 875-125 mg tablet
1 tab PO Q12 Qty: 8 0RF
tramadol 50 mg tablet
50 mg PO Q6HPRN PRN (Reason: severe pain/breakthrough pain) Qty: 5 0RF
acetaminophen [Tylenol Extra Strength] 500 mg tablet
1,000 mg PO Q6HPRN PRN (Reason: mild pain) Qty: 1 0RF
polyethylene glycol 3350 [Miralax] 17 gram/dose powder
4 g PO DAILY PRN (Reason: Constipation) Qty: 119 0RF
Rx Instructions:
start a laxative such as MIRALAX on day 2 after surgery if no bowel movement yet as long as no nausea/vomiting and passing gas
Continued
multivitamin Tablet
1 tab PO DAILY
amlodipine 5 mg Tablet
5 mg PO DAILY
metoprolol succinate 25 mg Tablet Extended Release 24 Hr
25 mg PO DAILY
valsartan 160 mg Tablet
160 mg PO DAILY
rosuvastatin 40 mg Tablet
40 mg PO DAILY
sildenafil 50 mg Tablet
50 mg PO DAILY PRN (Reason: ED)
Discharge Orders:
Discharge Patient (As Directed); Ordered 11/21/23
Ordered By: Bon Cole
Discharge Date and Time
Discharge Date/Time: 11/21/23 11:37
Print Language: RWANDAN
[2023-11-21 10:56] VITALS: BP 120/55
== END 2023-11-21 11:37 | disposition home or self-care (01) | DRG 855 ==
LOC: 2 SOUTH 15:57
PROVIDERS: Physician Assistant Medical; ADMITTING PHYSICIAN Hospitalist; CONSULT PHYSICIAN Surgery; EMERGENCY PHYSICIAN Student in an Organized Health Care Education/Training Program; FAMILY PHYSICIAN Internal Medicine Geriatric Medicine
PROC: 0FT44ZZ Resection of Gallbladder, Percutaneous Endoscopic Approach (ICD-10-PCS; 2023-11-19)
DX: A41.9 Sepsis, unspecified organism (principal); K81.9 Cholecystitis, unspecified
CPT/HCPCS: 88304; 76700; 80053; 83690; 84484; 85025; 85027; 93005; 96374; 96375; 99285

== ENCOUNTER 2024-12-10 08:15 | Emergency (ER) | payer OTHER, SELFPAY ==
[2024-12-10 08:23] VITALS: BP 136/72
--- NOTE | 2024-12-10 09:09 | ED.GENMED ---
History of Present Illness
General
Chief Complaint: Skin Surface Trauma
Source: patient
Exam Limitations: none
Time Seen by Provider: 12/10/24 09:02
History of Present Illness
History of Present Illness:
Patient hit his elbow against the car door causing a skin tear. No deep bony pain no other injury. Last tetanus is unknown.
Past History
Past History
ED Past Medical History: HTN, Hypercholesterolemia and Other (Aortic aneurysm. Slightly low platelet count)
ED Past Surgical History: Cholecystectomy, Tonsilectomy and Other (AAA repair. Cancer skin surgery. [place] teeth.)
Social History
Tobacco: Non-smoker
Alcohol: Occasional
Drug: None
Personal:
Living: with family
Phy Exam
Physical Exam
Physical Exam:
General: Nontoxic appearing in no distress
Skin: Warm and dry, no rash
Neuro: Alert, nontoxic, grossly nonfocal
Psychiatric: Good eye contact and appropriate
Musculoskeletal: Approximately 10 cm area of a superficial skin tear to the right elbow. No deep bony pain. Motor or sensory neurovascular intact. No pain with elbow motion good distal pulses and color. No forearm tenderness.
Course
Orders/Labs/Results
Orders:
Orders
12/10/24 09:09
Tetanus/Diphth/Acelpertussis [Adacel] 0.5 ml IM .ONCE ONE
Vital Signs
Initial and Last Documented VS:
Initial Vital Signs
Temp Pulse Resp BP Pulse Ox
97.9 F 78 18 136/72 97
12/10/24 08:23 12/10/24 08:23 12/10/24 08:23 12/10/24 08:23 12/10/24 08:23
Last Documented Vital Signs
Temp Pulse Resp BP Pulse Ox
97.9 F 78 18 136/72 97
12/10/24 08:23 12/10/24 08:23 12/10/24 08:23 12/10/24 08:23 12/10/24 08:23
MDM/Problems Addressed
Differential Diagnosis Includes:
Superficial distal aspect of skin tear will be trimmed. Proximal aspect will be glued.
Procedure: Wound was cleaned well. Debridement of the lower superficial skin tear. Glue to the proximal aspect.
*Pulse Oximetry
SaO2: 97
Oxygen Mode of Delivery: Room air
Patient hypoxic: no
*Critical Care Note
Total Time (30-74mins, 75-104mins- exclusive of procedures): Not Applicable
ED Attending Note
-
Portions of this chart may have been created with voice recognition software.� Occasional wrong word or��sound alike� substitutions may have occurred due to the inherent limitations of voice recognition software.
Discharge Plan
Departure
Patient Disposition: Home (Routine Discharge)
Date of Disposition: 12/10/24
Time of Disposition: 09:11
Patient with high blood pressure during this ER visit?: Yes
Discharge Problem:
Skin tear right elbow
Instructions: Laceration Repair With Glue (DC), BLOOD PRESSURE
Prescriptions:
No Action
multivitamin Tablet
1 tab PO DAILY
amlodipine 5 mg Tablet
5 mg PO DAILY
metoprolol succinate 25 mg Tablet Extended Release 24 Hr
25 mg PO DAILY
valsartan 160 mg Tablet
160 mg PO DAILY
rosuvastatin 40 mg Tablet
40 mg PO DAILY
sildenafil 50 mg Tablet
50 mg PO DAILY PRN (Reason: ED)
amoxicillin-pot clavulanate 875-125 mg tablet
1 tab PO Q12 Qty: 8 0RF
tramadol 50 mg tablet
50 mg PO Q6HPRN PRN (Reason: severe pain/breakthrough pain) Qty: 5 0RF
acetaminophen [Tylenol Extra Strength] 500 mg tablet
1,000 mg PO Q6HPRN PRN (Reason: mild pain) Qty: 1 0RF
polyethylene glycol 3350 [Miralax] 17 gram/dose powder
4 g PO DAILY PRN (Reason: Constipation) Qty: 119 0RF
Rx Instructions:
start a laxative such as MIRALAX on day 2 after surgery if no bowel movement yet as long as no nausea/vomiting and passing gas
Activity Restrictions/Additional Instructions:
Get wound rechecked with any concern for healing infection etc.
Interventions
Interventions:
*Risk Screen - Suicide Last Done: 12/10/24 08:23
*Neglect/Abuse Screening Last Done: 12/10/24 08:23
Discharge Date and Time
Print Language: SOUTH SUDANESE
[2024-12-10] MEDS: ADACEL 0.5 ML IM (09:18)
--- NOTE | 2024-12-10 09:26 | EDRN ---
Reviewed discharge instructions with patient. Verbalized understanding. Ambulated with steady gait to the lobby.
[2024-12-10 09:27] VITALS: BP 134/74
== END 2024-12-10 09:28 | disposition home or self-care (01) ==
LOC: EMR 08:15
PROVIDERS: EMERGENCY PHYSICIAN Emergency Medicine; FAMILY PHYSICIAN Internal Medicine Geriatric Medicine
DX: S51.011A Laceration without foreign body of right elbow, initial encounter (principal); W23.0XXA Caught, crushed, jammed, or pinched between moving objects, initial encounter; Z23 Encounter for immunization; I10 Essential (primary) hypertension; E78.00 Pure hypercholesterolemia, unspecified; Z85.828 Personal history of other malignant neoplasm of skin; Z90.49 Acquired absence of other specified parts of digestive tract
CPT/HCPCS: 99282; 12004; 90471; 90715

== ENCOUNTER → 2025-02-19 07:49 | Outpatient (REF) | payer OTHER, SELFPAY | LOC: RAD 07:49 | PROVIDERS: ATTENDING PHYSICIAN Student in an Organized Health Care Education/Training Program; FAMILY PHYSICIAN Internal Medicine Geriatric Medicine | DX: I71.40 Abdominal aortic aneurysm, without rupture, unspecified (principal) | CPT/HCPCS: 76770 ==